=== PATIENT | male | born 1985 | race Caucasian/White ===

== ENCOUNTER 2020-07-30 15:54 | Emergency (ER) | payer OTHER ==
[~2020-07-30] VITALS: Ht 177.8 cm; Wt 87.3 kg
[2020-07-30 15:59] VITALS: BP 138/78
[2020-07-30] MEDS ORDERED: METH18TA PO (16:07)
== END 2020-07-30 18:35 | disposition left against medical advice (07) ==
LOC: EMS 15:54
DX: M79.646 Pain in unspecified finger(s) (principal); Z53.21 Procedure and treatment not carried out due to patient leaving prior to being seen by health care provider